=== PATIENT | male | born 1990 | race Caucasian/White ===

== ENCOUNTER → 2016-06-03 | Outpatient (CLI) | payer OTHER ==
[~2016-06-03] MED LIST: COLACE; COLACE PO
--- NOTE | ~2016-06-03 | CR229 ---
[facility]. [facility] A Service of [facility] & [facility] RADIOLOGY TEXT RESULTS PATIENT: REECE CARCAMO JR LOCATION: [facility] : [birth year] UNIT #: [id number] AGE: [address]: SIMEON HOFF SEX: M ORDER DR: [id number] [place] [id number] O MR#: [id number] Acc #: [id number] NAME: REECE CARCAMO : 1990 SEX: M STUDY DATE/TIME: 06/03/2016 16:48 UNIT: [facility] ROOM: STUDY DESCRIPTION: CR Shoulder Min 2 View Lt Attending Physician: Simeon Hoff M.D. Referring Physician: Simeon Hoff M.D. Primary Care Physician: Domonique Grande M.D. MEDICAL IMAGING REPORT This report is preliminary unless electronic signature is present. EXAM Left shoulder INDICATIONS Left shoulder pain for 2 weeks. FINDINGS 3 views of the left shoulder without comparison. There is no acute fracture or subluxation. The acromioclavicular and glenohumeral articulations are within normal limits. IMPRESSION Negative left shoulder. Dictated by... Rajan Stone M.D. THIS IS AN ELECTRONICALLY VERIFIED REPORT Rajan Stone M.D. at 06/04/2016 8:39 AM Uziel TD: 06/04/2016 08:32 JOB #: [id number] MEDICAL IMAGING REPORT
== END | disposition home or self-care (01) ==
LOC: SRAD 16:37
DX: M25.512 Pain in left shoulder (principal)
CPT/HCPCS: 73030